=== PATIENT | male | born 1985 | race African-American/Black ===

== ENCOUNTER 2018-05-15 10:21 | Emergency (ER) | payer OTHER ==
[~2018-05-15] VITALS: Ht 185.4 cm; Wt 72.6 kg
[2018-05-15] MEDS ORDERED: ONDANSETRON HCL4 M2 PO (10:42)
[2018-05-15 11:09] LABS: ABSOLUTE LYMPHOCYTES 1.5 thou/uL (0.8-5.3); ABSOLUTE MONOCYTES 0.8 thou/uL (0.0-1.2); ABSOLUTE NEUTROPHILS 6.6 thou/uL (1.6-8.1); BASOPHILS 0.5 %; EOSINOPHILS 0.5 %; HEMATOCRIT 43.1 % (42.0-52.0); HEMOGLOBIN 14.5 gm/dL (14.0-18.0); LYMPHOCYTES 16.9 %; MCH 32.3 pg (26.0-34.0); MCHC 33.7 g/dL (28.0-37.0); MCV 95.7 fL (80.0-100.0); MONOCYTES 9.1 %; MPV 8.7 fl. (7.2-11.1); NUCLEATED RBCS 0 /100WBC; PLATELET COUNT* 233 thou/uL (150-400); RBC 4.51 mil/uL (4.50-6.00); RDW-CV 13.3 % (10.5-14.5)
[2018-05-15 11:17] LABS: CREATININE 0.7 mg/dL (0.6-1.3); POTASSIUM 3.3 mmol/L (3.5-5.1)
[2018-05-15 11:21] LABS: TOTAL BILIRUBIN 0.9 mg/dL (<0.1-1.0); TOTAL PROTEIN 7.5 g/dL (6.4-8.2)
[2018-05-15 11:35] LABS: URINE BILIRUBIN NEGATIVE (Negative); URINE BLOOD TRACE (Negative); URINE CLARITY CLEAR; URINE COLOR YELLOW; URINE GLUCOSE-RANDOM NEGATIVE (Negative); URINE KETONES NEGATIVE (Negative); URINE LEUKOCYTES-REFLEX NEGATIVE (Negative); URINE NITRITE-REFLEX NEGATIVE (Negative); URINE PROTEIN NEGATIVE (Negative); URINE SPECIFIC GRAVITY 1.015 (1.005-1.030); URINE UROBILINOGEN 0.2 E.U./dl (0.2-1.0)
[2018-05-15] MEDS ORDERED: ZOFRAN ODT4 MG PO (12:38)
[2018-05-15 12:50] VITALS: BP 115/70
== END 2018-05-15 12:50 | disposition home or self-care (01) ==
LOC: M.ERS 10:21
PROVIDERS: Physician Assistant Surgical
DX: R10.84 Generalized abdominal pain (principal); R11.2 Nausea with vomiting, unspecified; R51 Headache; Z88.0 Allergy status to penicillin

== ENCOUNTER 2018-06-02 07:25 | Emergency (ER) | payer OTHER ==
[~2018-06-02] VITALS: Ht 182.9 cm; Wt 68.0 kg
[~2018-06-02 07:25] MED LIST: ONDANSETRON HCL4 M2 PO; ZOFRAN ODT4 MG PO
[2018-06-02] MEDS ORDERED: ACCUNEB SO1.25 MG/1 INH (07:33)
[2018-06-02] MEDS ORDERED: AMBIEN 5 MG TABL5 M1 PO (07:33)
[2018-06-02 08:31] LABS: INFLUENZA A ANTIGEN None Detected (None Detect); INFLUENZA B ANTIGEN None Detected (None Detect)
[2018-06-02 09:14] LABS: ABSOLUTE LYMPHOCYTES 1.1 thou/uL (0.8-5.3); ABSOLUTE MONOCYTES 0.7 thou/uL (0.0-1.2); ABSOLUTE NEUTROPHILS 8.9 thou/uL (1.6-8.1); BASOPHILS 0.4 %; EOSINOPHILS 0.1 %; HEMATOCRIT 46.1 % (42.0-52.0); HEMOGLOBIN 15.5 gm/dL (14.0-18.0); LYMPHOCYTES 10.1 %; MCH 32.2 pg (26.0-34.0); MCHC 33.5 g/dL (28.0-37.0); MCV 96.1 fL (80.0-100.0); MONOCYTES 6.1 %; MPV 9.3 fl. (7.2-11.1); NUCLEATED RBCS 0 /100WBC; PLATELET COUNT* 259 thou/uL (150-400); POLYS 83.3 %; RDW-CV 13.4 % (10.5-14.5); WBC 10.7 thou/uL (4.0-11.0)
[2018-06-02 09:19] LABS: CALCIUM 9.5 mg/dL (8.5-10.1); CREATININE 0.7 mg/dL (0.6-1.3); POTASSIUM 3.6 mmol/L (3.5-5.1)
[2018-06-02 09:23] LABS: ALBUMIN 4.3 g/dL (3.4-5.0); TOTAL BILIRUBIN 0.7 mg/dL (<0.1-1.0)
[2018-06-02 09:53] LABS: URINE BILIRUBIN NEGATIVE (Negative); URINE BLOOD NEGATIVE (Negative); URINE CLARITY CLEAR; URINE COLOR YELLOW; URINE GLUCOSE-RANDOM NEGATIVE (Negative); URINE KETONES 1+ (Negative); URINE LEUKOCYTES-REFLEX NEGATIVE (Negative); URINE NITRITE-REFLEX NEGATIVE (Negative); URINE PROTEIN NEGATIVE (Negative); URINE UROBILINOGEN 0.2 E.U./dl (0.2-1.0)
[2018-06-02 11:08] LABS: AMP/METHAMP Negative (Negative); BARBITURATES Negative (Negative); BENZODIAZEPINES Negative (Negative); COCAINE Negative (Negative); METHADONE Negative (Negative); OPIATES Negative (Negative); PCP Negative (Negative); THC POSITIVE (Negative)
[2018-06-02] MEDS ORDERED: PHENERGAN 25 MG25 M1 PO (11:54)
[2018-06-02] MEDS ORDERED: PHENERGAN12.5 M2 RECTAL (11:54)
[2018-06-02 12:25] VITALS: BP 97/70
== END 2018-06-02 12:27 | disposition home or self-care (01) ==
LOC: M.ERS 07:25
PROVIDERS: Personal Emergency Response Attendant
DX: R11.2 Nausea with vomiting, unspecified (principal); B34.9 Viral infection, unspecified; R10.9 Unspecified abdominal pain; J45.909 Unspecified asthma, uncomplicated; R50.9 Fever, unspecified

== ENCOUNTER 2019-07-09 08:56 | Emergency (ER) | payer OTHER ==
[~2019-07-09] VITALS: Ht 185.4 cm; Wt 74.8 kg
[~2019-07-09 08:56] MED LIST changes: +ACCUNEB SO1.25 MG/1 INH; +AMBIEN 5 MG TABL5 M1 PO; +PHENERGAN 25 MG25 M1 PO; +PHENERGAN12.5 M2 RECTAL
[2019-07-09 09:58] LABS: ABSOLUTE LYMPHOCYTES 0.8 thou/uL (0.8-5.3); ABSOLUTE NEUTROPHILS 4.4 thou/uL (1.6-8.1); BASOPHILS 0.3 %; HEMOGLOBIN 15.3 gm/dL (14.0-18.0); LYMPHOCYTES 13.1 %; MCH 31.9 pg (26.0-34.0); MCV 93.7 fL (80.0-100.0); MONOCYTES 16.1 %; MPV 9.6 fl. (7.2-11.1); NUCLEATED RBCS 0 /100WBC; PLATELET COUNT* 139 thou/uL (150-400); POLYS 70.5 %; RDW-CV 13.6 % (10.5-14.5); WBC 6.3 thou/uL (4.0-11.0)
[2019-07-09 10:01] LABS: URINE BILIRUBIN NEGATIVE (Negative); URINE BLOOD TRACE (Negative); URINE CLARITY CLEAR; URINE COLOR YELLOW; URINE GLUCOSE-RANDOM NEGATIVE (Negative); URINE KETONES 1+ (Negative); URINE LEUKOCYTES-REFLEX NEGATIVE (Negative); URINE NITRITE-REFLEX NEGATIVE (Negative); URINE PROTEIN NEGATIVE (Negative); URINE SPECIFIC GRAVITY 1.025 (1.005-1.030); URINE UROBILINOGEN 0.2 E.U./dl (0.2-1.0)
[2019-07-09 10:07] LABS: INFLUENZA A ANTIGEN Negative (Negative)
[2019-07-09 10:08] LABS: AMP/METHAMP Negative (Negative); BARBITURATES Negative (Negative); BENZODIAZEPINES Negative (Negative); COCAINE Negative (Negative); METHADONE Negative (Negative); OPIATES Negative (Negative); PCP Negative (Negative); THC POSITIVE (Negative)
[2019-07-09 10:10] LABS: CALCIUM 8.6 mg/dL (8.5-10.1); CREATININE 0.7 mg/dL (0.6-1.3); POTASSIUM 4.1 mmol/L (3.5-5.1)
[2019-07-09 10:21] LABS: ALBUMIN 3.6 g/dL (3.4-5.0); TOTAL BILIRUBIN 0.3 mg/dL (<0.1-1.0); TOTAL PROTEIN 7.1 g/dL (6.4-8.2)
[2019-07-09] MEDS ORDERED: ZOFRAN ODT4 MG DISSOLVE (10:46)
[2019-07-09 11:05] VITALS: BP 95/40
--- NOTE | 2019-07-09 16:51 | EKG ---
[place] [address] ELECTROCARDIOGRAM REPORT Name: JESUS GEE Room: [facility]#: [id number] Admission: 07/09/19 Attend Phys: Discharge: 07/09/19 Date of : 89 Report #: [id number] THIS REPORT FOR: //name// [facility] ED Test Date: 2019-07-09 Test Time: 09:33:05 Pat Name: JESUS GEE Department: Room: Gender: M Torch Operator: GRIFFIN : 1985 Requested By: Martín Bolton Order Number: [id number] MD: Edin Sahu Measurements Intervals [place] Rate: 77 P: 84 MA: 147 QRS: 68 QRSD: 81 T: 72 QT: 345 QTc: 391 Interpretive Statements Sinus rhythm ST elev, probable normal early repol pattern No previous ECG available for comparison Electronically Signed On 07-09-2019 16:50:48 [employer]NC MACHINIST by Edin Sahu [email or web address] <ELECTRONICALLY SIGNED> By: Edin Sahu MD, [facility] 07/09/19 1650 0933 0933 Edin Sahu MD, FACC /EPI
== END 2019-07-09 11:05 | disposition home or self-care (01) ==
LOC: M.ERS 08:56
PROVIDERS: Emergency Medicine Emergency Medical Services
DX: J10.1 Influenza due to other identified influenza virus with other respiratory manifestations (principal); R11.2 Nausea with vomiting, unspecified; J45.909 Unspecified asthma, uncomplicated; F32.9 Major depressive disorder, single episode, unspecified; F17.200 Nicotine dependence, unspecified, uncomplicated; Z88.0 Allergy status to penicillin

== ENCOUNTER 2020-06-17 03:26 | Emergency (ER) | payer OTHER ==
[~2020-06-17] VITALS: Ht 188 cm; Wt 72.6 kg
[~2020-06-17 03:26] MED LIST changes: +ZOFRAN ODT4 MG DISSOLVE
[2020-06-17 04:36] LABS: HEMATOCRIT 45.7 % (42.0-52.0); HEMOGLOBIN 15.3 gm/dL (14.0-18.0); MCH 31.8 pg (26.0-34.0); MCHC 33.6 g/dL (28.0-37.0); MCV 94.8 fL (80.0-100.0); MPV 8.3 fl. (7.2-11.1); NUCLEATED RBCS 0 /100WBC; PLATELET COUNT* 268 thou/uL (150-400); RBC 4.82 mil/uL (4.50-6.00); RDW-CV 13.7 % (10.5-14.5); WBC 11.3 thou/uL (4.0-11.0)
[2020-06-17 04:41] LABS: CALCIUM 8.7 mg/dL (8.5-10.1); CREATININE 0.7 mg/dL (0.6-1.3); POTASSIUM 4.1 mmol/L (3.5-5.1)
[2020-06-17 04:45] LABS: ALBUMIN 4.2 g/dL (3.4-5.0); MAGNESIUM 1.9 mg/dL (1.8-2.4); TOTAL BILIRUBIN 0.7 mg/dL (<0.1-1.0); TOTAL PROTEIN 8.1 g/dL (6.4-8.2)
[2020-06-17 05:41] LABS: URINE BILIRUBIN NEGATIVE (Negative); URINE BLOOD NEGATIVE (Negative); URINE CLARITY CLEAR; URINE COLOR YELLOW; URINE GLUCOSE-RANDOM 1+ (Negative); URINE KETONES 2+ (Negative); URINE LEUKOCYTES-REFLEX NEGATIVE (Negative); URINE NITRITE-REFLEX NEGATIVE (Negative); URINE PROTEIN NEGATIVE (Negative); URINE SPECIFIC GRAVITY 1.025 (1.005-1.030)
[2020-06-17 05:46] LABS: ABSOLUTE BASOPHILS 0.1 thou/uL (0.0-0.2); ABSOLUTE MONOCYTES 0.7 thou/uL (0.0-1.2); ABSOLUTE NEUTROPHILS 8.5 thou/uL (1.6-8.1); PLATELET ESTIMATE ADEQUATE
[2020-06-17 05:48] LABS: AMP/METHAMP Negative (Negative); BARBITURATES Negative (Negative); BENZODIAZEPINES Negative (Negative); COCAINE POSITIVE (Negative); METHADONE Negative (Negative); OPIATES Negative (Negative); PCP Negative (Negative); THC POSITIVE (Negative)
[2020-06-17] MEDS ORDERED: ZOFRAN ODT4 MG PO (06:46)
[2020-06-17] MEDS ORDERED: PROTONIX40 MG PO (06:46)
[2020-06-17] MEDS ORDERED: CARAFATE 1 GM TA1 GM PO (06:46)
[2020-06-17 06:54] VITALS: BP 93/50
--- NOTE | 2020-06-20 11:38 | EKG ---
[place] [address] ELECTROCARDIOGRAM REPORT Name: JESUS GEE SR Room: [facility]#: [id number] Admission: 06/17/20 Attend Phys: Discharge: 06/17/20 Date of : 89 Date of Service: 06/17/20 0341 Report #: [id number] THIS REPORT FOR: //name// [facility] ED Test Date: 2020-06-17 Test Time: 03:41:34 Pat Name: JESUS MARLEN Department: Room: Gender: Legal Office Administrator: : 1985 Requested By: Mariola Ramos Order Number: [id number] Reading MD: Dionicio Matias Measurements Intervals [place] Rate: 76 P: 82 NM: 152 QRS: 76 QRSD: 84 T: 69 QT: 391 QTc: 440 Interpretive Statements Sinus rhythm Biatrial enlargement RSR' in V1 or V2, probably normal variant ST elevation suggests early repolarization Compared to ECG 07/09/2019 09:33:05 Atrial abnormality now present ST (T wave) deviation still present Electronically Signed On 06-20-2020 11:38:25 [employer] by Dionicio Matias [email or web address] <ELECTRONICALLY SIGNED> By: Dionicio Matias MD, FAC 06/20/20 1138 0 0 Dionicio Matias MD, [facility] /EPI
== END 2020-06-17 06:55 | disposition home or self-care (01) ==
LOC: M.ERS 03:26
PROVIDERS: Emergency Medicine
DX: K29.70 Gastritis, unspecified, without bleeding (principal); Z20.828 Contact with and (suspected) exposure to other viral communicable diseases; J45.909 Unspecified asthma, uncomplicated; Z88.0 Allergy status to penicillin

== ENCOUNTER 2021-03-15 15:06 | Emergency (ER) | payer OTHER, MEDICAID ==
[~2021-03-15] VITALS: Ht 185.4 cm; Wt 68.0 kg
[~2021-03-15 15:06] MED LIST changes: +CARAFATE 1 GM TA1 GM PO; +PROTONIX40 MG PO
[2021-03-15 16:34] LABS: ABSOLUTE LYMPHOCYTES 1.2 thou/uL (0.8-5.3); ABSOLUTE MONOCYTES 1.1 thou/uL (0.0-1.2); ABSOLUTE NEUTROPHILS 9.3 thou/uL (1.6-8.1); BASOPHILS 0.3 %; EOSINOPHILS 0.4 %; HEMATOCRIT 43.1 % (42.0-52.0); HEMOGLOBIN 14.2 gm/dL (14.0-18.0); LYMPHOCYTES 10.5 %; MCH 31.2 pg (26.0-34.0); MCHC 33.1 g/dL (28.0-37.0); MCV 94.4 fL (80.0-100.0); MONOCYTES 9.5 %; MPV 8.4 fl. (7.2-11.1); NUCLEATED RBCS 0 /100WBC; PLATELET COUNT* 233 thou/uL (150-400); POLYS 79.3 %; RBC 4.57 mil/uL (4.50-6.00); RDW-CV 13.7 % (10.5-14.5); WBC 11.7 thou/uL (4.0-11.0)
[2021-03-15 16:40] LABS: CALCIUM 8.6 mg/dL (8.5-10.1); CREATININE 0.8 mg/dL (0.6-1.3); POTASSIUM 3.4 mmol/L (3.5-5.1)
[2021-03-15 16:44] LABS: ALBUMIN 3.8 g/dL (3.4-5.0); TOTAL BILIRUBIN 0.9 mg/dL (<0.1-1.0); TOTAL PROTEIN 6.9 g/dL (6.4-8.2)
--- NOTE | 2021-03-15 17:34 | EKG ---
[place] [address] ELECTROCARDIOGRAM REPORT Name: JESUS GEE SR Room: [facility]#: [id number] Admission: 03/15/21 Attend Phys: Discharge: Date of : [birth year] Date of Service: 03/15/21 1644 Report #: [id number] THIS REPORT FOR: //name// [facility] ED Test Date: 2021-03-15 Test Time: 16:44:52 Pat Name: JESUS GEE Department: Room: Gender: Headhunter: : 1985 Requested By: Carolann Juan Order Number: [id number] MD: Girish Mcgill Measurements Intervals [place] Rate: 72 P: 93 [place]: 152 QRS: 71 QRSD: 80 T: 68 QT: 393 QTc: 431 Interpretive Statements Sinus rhythm Compared to ECG 06/17/2020 03:41:34 ST (T wave) deviation no longer present Early repolarization no longer present Electronically Signed On 03-15-2021 17:34:45 CDT by Girish Mcgill [email or web address] <ELECTRONICALLY SIGNED> By: Girish Mcgill MD, FACC 03/15/21 1734 1644 1644 Girish Mcgill MD, [facility] /EPI
[2021-03-15 19:19] LABS: URINE BLOOD NEGATIVE (Negative); URINE CLARITY CLEAR; URINE COLOR YELLOW; URINE GLUCOSE-RANDOM NEGATIVE (Negative); URINE LEUKOCYTES-REFLEX NEGATIVE (Negative); URINE NITRITE-REFLEX NEGATIVE (Negative); URINE PROTEIN NEGATIVE (Negative); URINE SPECIFIC GRAVITY >= 1.030 (1.005-1.030); URINE UROBILINOGEN 0.2 E.U./dl (0.2-1.0)
[2021-03-15 19:23] LABS: ICTOTEST (BILI CONFIRMATORY) Negative (Negative); URINE BILIRUBIN 1+ (Negative); URINE KETONES 3+ (Negative)
[2021-03-15 19:26] LABS: AMP/METHAMP Negative (Negative); BARBITURATES Negative (Negative); BENZODIAZEPINES Negative (Negative); COCAINE Negative (Negative); METHADONE Negative (Negative); OPIATES Negative (Negative); PCP Negative (Negative); THC POSITIVE (Negative)
[2021-03-15] MEDS ORDERED: ZOFRAN ODT4 MG PO (19:30)
[2021-03-15] MEDS ORDERED: FLEXERIL PO (19:30)
[2021-03-15 19:49] VITALS: BP 110/64
== END 2021-03-15 19:50 | disposition home or self-care (01) ==
LOC: M.ERS 15:06
PROVIDERS: Nurse Practitioner Family
DX: E86.0 Dehydration (principal); Z20.822 Contact with and (suspected) exposure to COVID-19; J45.909 Unspecified asthma, uncomplicated; R11.2 Nausea with vomiting, unspecified; R42 Dizziness and giddiness; Z88.1 Allergy status to other antibiotic agents; Z88.0 Allergy status to penicillin; Z79.899 Other long term (current) drug therapy

== ENCOUNTER 2021-03-17 16:52 | Emergency (ER) | payer OTHER, MEDICAID ==
[~2021-03-17] VITALS: Ht 188 cm; Wt 74.8 kg
[~2021-03-17 16:52] MED LIST changes: +FLEXERIL PO
[2021-03-17 17:05] VITALS: BP 104/64
[2021-03-17 17:26] LABS: URINE BILIRUBIN NEGATIVE (Negative); URINE BLOOD NEGATIVE (Negative); URINE CLARITY CLEAR; URINE COLOR YELLOW; URINE GLUCOSE-RANDOM NEGATIVE (Negative); URINE KETONES 1+ (Negative); URINE LEUKOCYTES-REFLEX NEGATIVE (Negative); URINE NITRITE-REFLEX NEGATIVE (Negative); URINE PROTEIN NEGATIVE (Negative); URINE UROBILINOGEN 0.2 E.U./dl (0.2-1.0)
[2021-03-17 17:40] LABS: AMP/METHAMP Negative (Negative); BARBITURATES Negative (Negative); BENZODIAZEPINES Negative (Negative); COCAINE Negative (Negative); METHADONE Negative (Negative); OPIATES Negative (Negative); PCP Negative (Negative); THC POSITIVE (Negative)
== END 2021-03-17 17:32 | disposition left against medical advice (07) ==
LOC: M.ERS 16:52
PROVIDERS: Family Medicine
DX: R11.15 Cyclical vomiting syndrome unrelated to migraine (principal); J45.909 Unspecified asthma, uncomplicated; F32.9 Major depressive disorder, single episode, unspecified; Z79.899 Other long term (current) drug therapy; Z88.1 Allergy status to other antibiotic agents; Z88.0 Allergy status to penicillin